=== PATIENT | male | born 1930 | race Caucasian/White ===

== ENCOUNTER → 2018-10-13 | Outpatient (CLI) | payer MEDICARE, OTHER ==
[~2018-10-13] MED LIST: ACIPHEX20 MG PO; AGGRENOX 25 MG-1 CAP PO; ALIGN4 MG PO; ALLEGRA-D 12 H1 EACH PO; ASPIRIN EC81 MG PO; ATORVASTATIN CA20 MG PO; B-121000 MCG PO; BACLOFEN10 MG PO; BACTRIM 400-801 EACH PO; BIOTIN800 MCG PO; BONIVA3 MG/3 ML IV; CALCIUM600 MG PO; CITRUCEL500 MG PO; CO Q-10200 MG PO; CYMBALTA60 MG PO; D3 PO; DOCUSATE CALCI240 MG PO; FINASTERIDE5 MG PO; FLECTOR1 EACH TOP; FLOMAX0.4 MG PO; FLONASE NS; FOLIC ACID1 MG PO; GABAPENTIN300 MG PO; I-CAPS AREDS S1 EACH PO; IRON18 MG PO; LEVSIN-SL0.125 MG SL; LORATADINE10 MG PO; LUTEIN20 MG PO; MIRALAX17 GM PO; NITROGLYCERIN0.4 MG SL; OXYCODONE-ACET1 EAC1 PO; PLAVIX75 MG PO; PRIMIDONE50 MG PO; RAMIPRIL2.5 MG PO; ROPINIROLE HC0.25 MG PO; SYNTHROID50 MCG PO; TOPROL XL25 MG PO; TYLENOL325 MG PO; ZYRTEC10 M3 PO; [UNRECOGNIZED DRUG - OTHER] PO
--- NOTE | 2018-10-13 12:00 | Diagnostic Imaging Report ---
EXAM: CT Abdomen and Pelvis WITHOUT intravenous contrast INDICATION: Renal calculus COMPARISON: None. TECHNIQUE: Abdomen and pelvis were scanned utilizing a multidetector helical scanner from the lung base to the pubic symphysis without administration of IV contrast. Coronal and sagittal reformations were obtained. Routine protocol was performed. IV CONTRAST: None ORAL CONTRAST: None COMPLICATIONS: None RADIATION DOSE: Total DLP: 639.93 mGy*cm Dose modulation, iterative reconstruction, and/or weight based adjustment of the mA/kV was utilized to reduce the radiation dose to as low as reasonably achievable. FINDINGS: LOWER THORAX: Mild bibasilar dependent subsegmental atelectasis. Small area of subpleural clustered cystic changes at the posterior left lower lobe. Atherosclerotic coronary artery calcifications. Focal herniation of the posterior right hemidiaphragm containing fat. HEPATOBILIARY: Hypodense lesion in segment 3, likely a cyst. No other focal liver lesions. No definite biliary ductal dilatation. The gallbladder appears unremarkable. SPLEEN: No splenomegaly. PANCREAS: No focal masses or ductal dilatation. ADRENALS: No adrenal nodules. KIDNEYS/URETERS: Right upper pole renal cyst measures up to 5.6 x 5.3 cm. Right lower pole 3 mm nonobstructing renal calculus. No hydronephrosis. PELVIC ORGANS/BLADDER: Unremarkable. PERITONEUM / RETROPERITONEUM: No free air or fluid. LYMPH NODES: No lymphadenopathy. VESSELS: Diffuse atherosclerotic calcifications of the abdominal aorta and major branches. GI TRACT: Colonic diverticulosis with no CT evidence of diverticulitis. No abnormal bowel wall thickening. No evidence of bowel obstruction. Normal appendix. Incidental note made of duodenal diverticulum. BONES AND SOFT TISSUES: Moderate degenerative changes of the lower lumbar spine. Right gluteal implanted neural stimulator device with leads entering the spinal canal at approximately the L1-2 level. IMPRESSION: Right lower pole 3 mm nonobstructing renal calculus. No hydronephrosis. Right upper pole renal cyst. Coronary artery atherosclerosis. Signed by: John Méndez MD on 10/13/2018 11:56 AM
== END ==
LOC: CT 10:01
PROVIDERS: ATTEND Urology
DX: N20.0 Calculus of kidney (principal)
CPT/HCPCS: 74176

== ENCOUNTER 2018-12-29 15:00 | Inpatient (IN) | payer MEDICARE ==
[~2018-12-29] VITALS: Ht 185.4 cm; Wt 94.8 kg
--- OUTSIDE RECORDS SUMMARY | 2018-12-29 15:12 | XMS REPORT ---
Author Author [facility] [place] Address Unknown Phone Unavailable Care Team Providers Care Pottery Decorator Name Role Phone GINO MARSHALL Unavailable Unavailable PHILLIP SWARTZ Unavailable Unavailable Payers Payer Name Policy Type Policy Number Effective Date Expiration Date Problems This patient has no known problems. Allergies, Adverse Reactions, Alerts Allergy Name Allergy Type Status Severity Reaction(s) Onset Date Inactive Date Treating Clinician Comments ciprofloxacin DA Active [place] 2018-02-12 00:00:00 ciprofloxacin DA Active NH 2012-05-26 00:00:00 Medications This patient has no known medications. Results Test Description Test Time Test Comments Text Results Atomic Results Result Comments CT ABDOMEN/PELVIS WO 2018-12-23 23:55:00 [place] [address] Patient Name: QIANA STEPHENS MR #: [id number] : 1930 Age/Sex: 88/M Req #: [id number] Adm Physician: GINO MARSHALL MD Ordered by: PHILLIP SWARTZ MD Report #: [id number] Location: MED/SURG Room/Bed: [facility] Procedure: [id number] CT/CT ABDOMEN/PELVIS WO Exam Date: Exam Time: REPORT STATUS: Signed EXAM: CT Abdomen and Pelvis WITHOUT contrast INDICATION: TO CHECK CATHETER POSITION Y COMPARISON: CT dated 10/13/2018 TECHNIQUE: Abdomen and pelvis were scanned utilizing a multidetector helical scanner from the lung base to the pubic symphysis without administration of IV contrast. Absence of intravenous contrast decreases sensitivity for detection of focal lesions and vascular pathology. Coronal and sagittal reformations were obtained. Routine protocol was performed. IV CONTRAST: None ORAL CONTRAST: None COMPLICATIONS: None RADIATION DOSE: Total DLP: 786.73 mGy*cm Estimated effective dose: (DLP x 0.015 x size factor) mSv CTDIvol has been reviewed. It is below the limits set by the Radiation Protocol Committee (RPC). FINDINGS: LINES and TUBES: Ramos catheter. Spine stimulator device. LOWER THORAX: Again seen fat containing posterior right diaphragmatic hernia. Mild dependent atelectasis. Partially seen median sternotomy wires and coronary artery calcifications. HEPATOBILIARY: Stable left hepatic lobe hypodensity. Punctate segment VIII calcified granuloma. Otherwise, unenhanced liver is unremarkable. No biliary ductal dilation. GALLBLADDER: No radio-opaque stones or sludge. No wall thickening. SPLEEN: No splenomegaly. Calcified granulomas. PANCREAS: Atrophic. No focal masses or ductal dilatation. ADRENALS: No a drenal nodules KIDNEYS/URETERS: No hydronephrosis. Limited for evaluation of renal parenchyma without intravenous contrast. No significantly changed left mid to inferior pole cyst. Unchanged dilated left renal pelvis. Tiny left superior and inferior pole nonobstructive calculi. Nonspecific bilateral perinephric fat stranding. GI TRACT: No abnormal distention, wall thickening, or evidence of bowel obstruction. Sigmoid diverticulosis without evidence of diverticulitis. 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 Appendix is normal. PELVIC ORGANS/BLADDER: Distended bladder, despite presence of Ramos catheter. Nondependent air within bladder. There is hyperdense material, surrounding the Ramos catheter balloon and tip within bladder with small amount of dependent air. LYMPH NODES: No lymphadenopathy. VESSELS: Moderate to severe aortoiliac atherosclerotic disease. PERITONEUM / RETROPERITONEUM: No free air or fluid. BONES: Mild lumbar spine scoliosis with multilevel advanced degenerative changes. T9 vertebral body hemangioma. SOFT TISSUES: Unremarkable. IMPRESSION: Ramos catheter in place with its balloon and tip within bladder. Hyperdense material, likely blood clot surrounding the catheter balloon and tip within dependent portion of bladder, probably the reason for impaired drainage. The bladder is distended. Additional ancillary findings as above. Signed by: Dr. Rashad Estrella MD on 12/24/2018 12:14 AM Dictated By: RASHAD ESTRELLA MD Transcribed By: EDE on 12/24/1813 COPY TO: PHILLIP SWARTZ MD CHEST 2 VIEWS 2018-12-21 16:44:00 [place] [address] Patient Name: QIANA STEPHENS MR #: [id number] : 1930 Age/Sex: 88/M Req #: [id number] Adm Physician: Ordered by: PHILLIP SWARTZ MD Report #: [id number] Location: OR Room/Bed: Procedure: [id number] DX/CHEST 2 VIEWS Exam Date: 12/21/18 Exam Time: 1623 REPORT STATUS: Signed EXAMINATION: CHEST 2 VIEWS INDICATION: Pre-operative COMPARISON: None FINDINGS: LINES/TUBES:Partially visualized nerve stimulator leads project over the spine. Sternotomy wires intact. LUNGS:The lungs are well inflated. No focal consolidation or pulmonary edema. Scattered subcentimeter left calcified granulomas. PLEURA:No pleural effusion or pneumothorax. MEDIASTINUM:The cardiomediastinal silhouette appears normal in size and shape. Postoperative findings of prior CABG. Atherosclerotic calcifications of the thoracic aorta. BONES/SOFT TISSUES:No acute osseous injury. Partially visualized cervical spine fusion hardware. ABDOMEN:No free air under the diaphragm. IMPRESSION: No focal pneumonia or pulmonary edema. Signed by: Danielito Burgos MD on 12/21/2018 4:46 PM Dictated By: DANIELITO BURGOS MD 45 Transcribed By: EDE on 12/21/181645 COPY TO: PHILLIP SWARTZ MD CT ABDOMEN/PELVIS WO 2018-10-13 11:42:00 [place] [address] Patient Name: QIANA STEPHENS MR #: [id number] : 1930 Age/Sex: 88/M Req #: [id number] Adm Physician: Ordered by: PHILLIP SWARTZ MD Report #: [id number] Location: CT Room/Bed: Procedure: [id number] CT/CT ABDOMEN/PELVIS WO Exam Date: 10/13/18 Exam Time: 1020 REPORT STATUS: Signed EXAM: CT Abdomen and Pelvis WITHOUT intravenous contra st INDICATION: Renal calculus COMPARISON: None. TECHNIQUE: Abdomen and pelvis were scanned utilizing a multidetector helical scanner from the lung base to the pubic symphysis without administration of IV contrast. Coronal and sagittal reformations were obtained. Routine protocol was performed. IV CONTRAST: None ORAL CONTRAST: None COMPLICATIONS: None RADIATION DOSE: Total DLP: 639.93 mGy*cm Dose modulation, iterative reconstruction, and/or weight based adjustment of the mA/kV was utilized to reduce the radiation dose to as low as reasonably achievable. FINDINGS: LOWER THORAX: Mild bibasilar dependent subsegmental atelectasis. Small area of subpleural clustered cystic changes at the posterior left lower lobe. Atherosclerotic coronary artery calcifications. Focal herniation of the posterior right hemidiaphragm containing fat. HEPATOBILIARY: Hypodense lesion in segment 3, likely a cyst. No other focal liver lesions. No definite biliary ductal dilatation. The gallbladder appears unremarkable. SPLEEN: No splenomegaly. PANCREAS: No focal masses or ductal dilatation. ADRENALS: No adrenal nodules. KIDNEYS/URETERS: Right upper pole renal cyst measures up to 5.6 x 5.3 cm. Right lower pole 3 mm nonobstructing renal calculus. No hydronephrosis. PELVIC ORGANS/BLADDER: Unremarkable. PERITONEUM / RETROPERITONEUM: No free air or fluid. LYMPH NODES: No lymphadenopathy. VESSELS: Diffuse atherosclerotic calcifications of the abdominal aorta and major branches. GI TRACT: Colonic diverticulosis with no CT evidence of diverticulitis. No abnormal bowel wall thickening. No evidence of bowel obstruction. Normal appendix. Incidental note made of duodenal diverticulum. BONES AND SOFT TISSUES: Moderate degenerative changes of the lower lumbar spine. Right gluteal implanted neural stimulator device with leads entering the spinal canal at approximately the L1-2 level. IMPRESSION: Right lower pole 3 mm nonobstructing renal calculus. No hydronephrosis. Right upper pole renal cyst. Coronary artery atherosclerosis. Signed by: Danielito Burgos MD on 10/13/2018 11:56 AM Dictated By: DANIELITO BURGOS MD [id number] Transcribed By: EDE on 10/13/18 1156 COPY TO: PHILLIP SWARTZ MD
[2018-12-29] MEDS ORDERED: SODIUM CHLORIDE 0.9% 1000ML 2,000 ML IV STA (15:34)
[2018-12-29] MEDS ORDERED: ACETAMINOPHEN 325 MG TAB PO NR (15:45)
[2018-12-29 15:50] LABS: BASOPHILS % 0.1 % (0.0-1.0); EOSINOPHILS # (AUTO) 0.6 (0.0-0.4); EOSINOPHILS % 4.8 % (0.0-6.0); HEMATOCRIT 31.9 % (38.2-49.6); HEMOGLOBIN 10.2 g/dL (14.0-18.0); LYMPHOCYTES # (AUTO) 0.7 (1.0-3.2); LYMPHOCYTES % 5.4 % (18.0-39.1); MEAN CORPUSCULAR HEMOGLOBIN 30.4 pg (28-32); MEAN CORPUSCULAR VOLUME 95.2 fL (81-99); MONOCYTES # (AUTO) 0.8 (0.2-0.8); MONOCYTES % 6.4 % (4.4-11.3); NEUTROPHILS # (AUTO) 10.8 (2.1-6.9); NEUTROPHILS % 82.8 % (38.7-80.0); PLATELET COUNT 182 x10e3/uL (140-360); RED BLOOD COUNT 3.35 x10e6/uL (4.3-5.7); RED CELL DISTRIBUTION WIDTH 15.9 % (11.7-14.4)
[2018-12-29 15:52] LABS: BILIRUBIN,URINE SMALL (NEGATIVE); CLARITY,URINE SL CLOUDY (CLEAR); COLOR,URINE ORANGE (YELLOW); KETONES,URINE NEGATIVE (NEGATIVE); LEUKOCYTE ESTERASE ,URINE MODERATE (NEGATIVE); NITRITE,URINE POSITIVE (NEGATIVE); URINE UROBILINOGEN 4 mg/dL (0.2 - 1)
[2018-12-29 15:54] LABS: PROTEIN,URINE DIPSTICK 2+ (NEGATIVE)
[2018-12-29] MEDS ORDERED: PIPERACILLIN/TAZO 4.5 GM 100 ML IV SCH (16:00)
[2018-12-29 16:07] LABS: BACTERIA,URINE MODERATE /HPF; RBC,URINE 21-50 /HPF (0-5)
[2018-12-29] MEDS: MORPHINE SULFATE INJ 4 MG/ML INJ 1ML IV PRN ×2 (16:07→20:00)
[2018-12-29 16:08] LABS: ALBUMIN 2.8 g/dL (3.5-5.0); ALBUMIN/GLOBULIN RATIO 0.8 (0.8-2.0); ANION GAP 18.3 mmol/L (8-16); CALCIUM 9.2 mg/dL (8.4-10.2); CREATININE, SERUM 1.19 mg/dL (0.72-1.25); POTASSIUM 4.3 mmol/L (3.5-5.1)
[2018-12-29 16:44] LABS: CREATINE KINASE MB 3.1 ng/mL (0-5.0)
[2018-12-29] MEDS: SODIUM CHLORIDE 0.9% 1000ML 1,000 ML IV SCH (17:18)
--- NOTE | 2018-12-29 18:03 | NUR ---
Received patient from ER. Respiration even and unlabored without SOB. Call light in reach.
--- NOTE | 2018-12-29 19:22 | NUR ---
Report given to assistant casino shift manager. Patient is lying in bed with eyes open. Respiration even and unlabored without SOB. Call light in reach.
--- NOTE | 2018-12-29 19:37 | NUR ---
Received change of shift report from AM nurse. Walking rounds completed.
[2018-12-29 19:50] VITALS: BP 102/59
[2018-12-29 20:00] VITALS: BP 102/59
[2018-12-29] MEDS: ONDANSETRON HCL INJ 2MG/ML 2ML 2 MG/ML VIAL IV PRN (20:00)
[2018-12-29] MEDS: PIPERACILLIN/TAZO 4.5 GM 100 ML IV SCH (23:38)
[2018-12-30] VITALS (10 sets, daily range): BP systolic 108–140; BP diastolic 49–63
--- NOTE | 2018-12-30 | NUR ---
Patient Admitted and assessment completed. Patient in great deal of pain. Called MD and waiting for a return call.
[2018-12-30] MEDS: MORPHINE SULFATE INJ 4 MG/ML INJ 1ML IV PRN ×3 (01:16→05:07)
[2018-12-30] MEDS: ONDANSETRON HCL INJ 2MG/ML 2ML 2 MG/ML VIAL IV PRN ×4 (01:18→23:54)
[2018-12-30 04:52] LABS: CREATINE KINASE MB 4.5 ng/mL (0-5.0)
[2018-12-30] MEDS ORDERED: OXYCODONE/ACETAMINOPHEN 5-325 1 EACH TABLET PO SCH (05:15)
[2018-12-30] MEDS ORDERED: LORATADINE 10 MG TAB PO PRN (05:15)
[2018-12-30] MEDS ORDERED: SULFAMETHOXAZOLE PO SCH (05:15)
[2018-12-30] MEDS ORDERED: HYOSCYAMINE 0.125 MG TAB SL PRN (05:15)
[2018-12-30] MEDS ORDERED: FEXOFENADINE PO SCH (05:15)
[2018-12-30] MEDS ORDERED: BACLOFEN 10 MG TAB PO PRN (05:15)
[2018-12-30] MEDS ORDERED: [UNRECOGNIZED DRUG - OTHER] PO SCH (05:15)
[2018-12-30] MEDS ORDERED: PSEUDOEPHEDRINE PO SCH (05:15)
[2018-12-30] MEDS ORDERED: TRIMETHOPRIM PO SCH (05:15)
[2018-12-30] MEDS ORDERED: [UNRECOGNIZED DRUG - OTHER] PO SCH (05:15)
[2018-12-30] MEDS: PIPERACILLIN/TAZO 4.5 GM 100 ML IV SCH ×2 (06:00→12:14)
[2018-12-30] MEDS: LEVOTHYROXINE SODIUM 50 MCG TAB PO SCH (06:04)
--- NOTE | 2018-12-30 06:24 | NUR ---
S/W Received orders. Orders completed. Also call consult for Dr Camara.
[2018-12-30] MEDS: SODIUM CHLORIDE 0.9% 1000ML 1,000 ML IV SCH ×2 (08:04→09:20)
[2018-12-30] MEDS: OXYCODONE/ACETAMINOPHEN 5-325 1 EACH TABLET PO SCH ×3 (08:52→20:46)
[2018-12-30] MEDS: BIFIDOBACTERIUM INFANTIS PO SCH (09:00)
[2018-12-30] MEDS: [UNRECOGNIZED DRUG - OTHER] PO SCH (09:00)
[2018-12-30] MEDS: COPPER PO SCH (09:00)
[2018-12-30] MEDS: VIT C PO SCH (09:00)
[2018-12-30] MEDS: VIT A PO SCH (09:00)
[2018-12-30] MEDS ORDERED: DOCUSATE SODIUM 100 MG CAP PO SCH (09:00)
[2018-12-30] MEDS: VIT E PO SCH (09:00)
[2018-12-30] MEDS: TOLTERODINE TARTRATE 2 MG TAB PO SCH ×2 (09:00→17:00)
[2018-12-30] MEDS: LUTEIN 20 MG PO SCH (09:00)
[2018-12-30] MEDS ORDERED: CLOPIDOGREL BISULFATE 75 MG TAB PO SCH (09:00)
[2018-12-30] MEDS ORDERED: ASPIRIN 81 MG ENTERIC COATED PO SCH (09:00)
[2018-12-30] MEDS: ZINC PO SCH (09:00)
[2018-12-30 10:55] LABS: CREATINE KINASE MB 5.1 ng/mL (0-5.0)
[2018-12-30] MEDS: GABAPENTIN 300 MG CAP PO SCH ×3 (11:30→20:46)
[2018-12-30] MEDS: SENNOSIDES 8.6 MG TAB PO SCH ×2 (11:30→17:00)
[2018-12-30] MEDS: PRIMIDONE 50 MG TAB PO SCH ×2 (11:30→17:00)
[2018-12-30] MEDS: POLYETHYLENE GLYCOL 3350 17 GM PACK PO SCH (11:30)
[2018-12-30] MEDS: FOLIC ACID 1 MG TAB PO SCH (11:30)
[2018-12-30] MEDS: TAMSULOSIN HCL 0.4 MG CAP PO SCH (11:30)
[2018-12-30] MEDS: CALCIUM CARBONATE 500 MG CHEWABLE TABS PO SCH (11:30)
[2018-12-30] MEDS: PANTOPRAZOLE SOD 40 MG TABEC PO SCH (11:30)
[2018-12-30] MEDS: BACLOFEN 10 MG TAB PO SCH ×3 (11:30→20:46)
[2018-12-30] MEDS: HYDROMORPHONE 1MG/1ML INJ IV PRN ×2 (11:35→23:54)
[2018-12-30] MEDS: B&O 60MG R/S 60 MG SUPP PR PRN ×2 (12:57→20:50)
[2018-12-30] MEDS: PIPERACILLIN/TAZO 2.25 GM 50 ML IV SCH ×2 (13:37→20:46)
[2018-12-30] MEDS: CELECOXIB 200 MG CAP PO SCH (17:50)
--- NOTE | 2018-12-30 19:00 | NUR ---
received report from day nurse. patient is resting comfortably in the bed. bed is in the lowest position and call castellano is within reach. will continue to monitor patient.
[2018-12-30] MEDS: FINASTERIDE 5 MG TAB PO SCH (20:46)
[2018-12-30] MEDS: ATORVASTATIN 20 MG TAB PO SCH (20:47)
[2018-12-31] VITALS (8 sets, daily range): BP systolic 103–152; BP diastolic 54–69
[2018-12-31] MEDS: SODIUM CHLORIDE 0.9% 1000ML 1,000 ML IV SCH ×2 (01:31→12:29)
[2018-12-31] MEDS: OXYCODONE/ACETAMINOPHEN 5-325 1 EACH TABLET PO SCH ×4 (02:27→23:19)
[2018-12-31] MEDS: B&O 60MG R/S 60 MG SUPP PR PRN ×2 (04:18→10:05)
[2018-12-31] MEDS: HYDROMORPHONE 1MG/1ML INJ IV PRN ×2 (04:18→12:29)
[2018-12-31] MEDS: ONDANSETRON HCL INJ 2MG/ML 2ML 2 MG/ML VIAL IV PRN (04:18)
[2018-12-31] MEDS: PIPERACILLIN/TAZO 2.25 GM 50 ML IV SCH ×2 (05:15→16:22)
[2018-12-31] MEDS: LEVOTHYROXINE SODIUM 50 MCG TAB PO SCH (05:15)
[2018-12-31] MEDS: BACLOFEN 10 MG TAB PO SCH ×3 (05:15→23:19)
[2018-12-31 06:30] LABS: BASOPHILS % 0.2 % (0.0-1.0); EOSINOPHILS # (AUTO) 0.3 (0.0-0.4); EOSINOPHILS % 2.2 % (0.0-6.0); HEMATOCRIT 28.7 % (38.2-49.6); LYMPHOCYTES # (AUTO) 1.2 (1.0-3.2); LYMPHOCYTES % 8.9 % (18.0-39.1); MEAN CORPUSCULAR HEMOGLOBIN 30.8 pg (28-32); MEAN CORPUSCULAR HGB CONC 31.4 g/dL (31-35); MEAN CORPUSCULAR VOLUME 98.3 fL (81-99); MONOCYTES % 7.5 % (4.4-11.3); NEUTROPHILS # (AUTO) 10.6 (2.1-6.9); NEUTROPHILS % 79.6 % (38.7-80.0); PLATELET COUNT 186 x10e3/uL (140-360); RED BLOOD COUNT 2.92 x10e6/uL (4.3-5.7); RED CELL DISTRIBUTION WIDTH 16.2 % (11.7-14.4)
[2018-12-31 06:49] LABS: ANION GAP 12.2 mmol/L (8-16); BLOOD UREA NITROGEN 15 mg/dL (7-26); BUN/CREATININE RATIO 15 (6-25); CALCIUM 7.6 mg/dL (8.4-10.2); CARBON DIOXIDE 24 mmol/L (22-29); CHLORIDE 109 mmol/L (98-107); CREATININE, SERUM 0.97 mg/dL (0.72-1.25); EST GLOMERULAR FILTRATION RATE > 60 ML/MIN (60-); GLUCOSE 104 mg/dL (74-118); POTASSIUM 4.2 mmol/L (3.5-5.1); SODIUM 141 mmol/L (136-145)
--- NOTE | 2018-12-31 06:54 | NUR ---
report given to day nurse. patient is resting comfortably in bed. bed is in lowest position and call light is within reach.
[2018-12-31] MEDS: BIFIDOBACTERIUM INFANTIS PO SCH (09:00)
[2018-12-31] MEDS: LUTEIN 20 MG PO SCH (09:00)
[2018-12-31] MEDS: COPPER PO SCH (09:00)
[2018-12-31] MEDS: [UNRECOGNIZED DRUG - OTHER] PO SCH (09:00)
[2018-12-31] MEDS: VIT E PO SCH (09:00)
[2018-12-31] MEDS: VIT C PO SCH (09:00)
[2018-12-31] MEDS: VIT A PO SCH (09:00)
[2018-12-31] MEDS: ZINC PO SCH (09:00)
[2018-12-31] MEDS: TAMSULOSIN HCL 0.4 MG CAP PO SCH (10:23)
[2018-12-31] MEDS: FOLIC ACID 1 MG TAB PO SCH (10:23)
[2018-12-31] MEDS: PANTOPRAZOLE SOD 40 MG TABEC PO SCH (10:23)
[2018-12-31] MEDS: CELECOXIB 200 MG CAP PO SCH ×2 (10:23→18:02)
[2018-12-31] MEDS: CALCIUM CARBONATE 500 MG CHEWABLE TABS PO SCH (10:24)
[2018-12-31] MEDS: SENNOSIDES 8.6 MG TAB PO SCH ×2 (10:24→18:02)
[2018-12-31] MEDS: PRIMIDONE 50 MG TAB PO SCH ×2 (10:24→18:02)
[2018-12-31] MEDS: POLYETHYLENE GLYCOL 3350 17 GM PACK PO SCH (10:24)
[2018-12-31] MEDS: GABAPENTIN 300 MG CAP PO SCH ×3 (10:24→23:19)
[2018-12-31] MEDS: PHENAZOPYRIDINE HCL 100 MG TAB PO SCH ×3 (10:24→23:19)
[2018-12-31] MEDS ORDERED: DIATRIZOATE MEGL/DIATRIZOA SOD 30 ML BTL PO ONE (10:29)
[2018-12-31] MEDS ORDERED: SODIUM CHLORIDE 0.9% 50ML 50 ML ONE (14:49)
[2018-12-31] MEDS ORDERED: IOPAMIDOL 370 MG/ML 200 ML INFUS..BTL INJ ONE (14:49)
--- NOTE | 2018-12-31 15:30 | Diagnostic Imaging Report ---
CT of the chest, without contrast, 12/31/2018. History: Cough. Comparison: Chest x-ray 12/21/2018. Technique: Multidetector CT scanning of the chest was performed from the level of the apices to the upper abdomen without contrast. Coronal and sagittal multiplanar reformations were obtained. RADIATION DOSE: Total DLP: 1379 mGy*cm Dose modulation, iterative reconstruction, and/or weight based adjustment of the mA/kV was utilized to reduce the radiation dose to as low as reasonably achievable. Discussion: Evaluation is limited without IV contrast. Chest: The heart, aorta, and pulmonary vessels are normal in size. CABG clips are present. Calcified left hilar lymph nodes are noted. There is no gross evidence of adenopathy. The pleura and lungs are normal in appearance. Calcified granuloma is noted in the left upper lobe. There is bilateral dependent atelectasis with small bilateral pleural effusions. Limited evaluation of the upper abdomen shows normal adrenal glands. Oral contrast is noted within the esophagus and stomach. Bones and soft tissues: No acute abnormality. Median sternotomy wires are present. Spinal stimulator is noted within the lower thoracic spine. IMPRESSION: 1. Findings of previous granulomatous disease. 2. Bibasilar atelectasis and small bilateral pleural effusions. Signed by: Phil Reynoso on 12/31/2018 3:27 PM
--- NOTE | 2018-12-31 15:44 | Diagnostic Imaging Report ---
CT of the abdomen and pelvis, with contrast, 12/31/2018. History: UTI, abdominal pain. Comparison: Noncontrast CT 12/23/2018. Technique: Multidetector CT scanning of the abdomen and pelvis was performed from the level of the lung bases to the inferior pubic rami after intravenous and oral administration of contrast. Coronal and sagittal multiplanar reformations were obtained. RADIATION DOSE: Total DLP: 1378 mGy*cm Dose modulation, iterative reconstruction, and/or weight based adjustment of the mA/kV was utilized to reduce the radiation dose to as low as reasonably achievable. Discussion: LUNG BASES: There is bibasilar atelectasis with small bilateral pleural effusions. ABDOMEN: 7.7 cm left renal cyst is again noted. There is dilatation of the left renal pelvis and left ureter. There is mild right hydronephrosis and hydroureter. There is no visible renal or ureteral stone. The gallbladder is distended measuring 5.7 cm in transverse diameter, without visible stone or wall thickening. Calcified granulomata are noted within the liver and spleen. The liver, biliary tree, spleen, pancreas, and adrenal glands are otherwise normal. The hepatic vein, portal vein, and splenic vein are patent. The abdominal aorta is within normal limits for size. An aortobiiliac graft is noted, which is patent. There is no bowel dilatation. Multiple diverticuli are present within the sigmoid colon without evidence of adjacent inflammation. There is no evidence of adenopathy or free fluid. PELVIS: A Ramos catheter is present within the bladder, which is decompressed, but with apparent wall thickening anteriorly. Prostate is unremarkable. There is no evidence of free fluid or adenopathy. BONES AND SOFT TISSUES: Advanced degenerative changes are present throughout the lumbar spine without evidence of lytic or sclerotic lesion. Spinal stimulator is noted posteriorly. IMPRESSION: 1. Mild bilateral hydronephrosis and hydroureter without visible obstructing stone. Apparent anterior bladder wall thickening. Hyperdense material in the bladder previously described is no longer seen. Large left renal cyst is again noted. 2. Gallbladder distention without visible gallstone. 3. Colonic diverticulosis without evidence of diverticulitis. Signed by: Phil Reynoso on 12/31/2018 3:41 PM
[2018-12-31] MEDS: TOLTERODINE TARTRATE 2 MG TAB PO SCH ×2 (16:22→18:02)
--- NOTE | 2018-12-31 21:06 | NUR ---
MD returned call, given order for midline.
[2018-12-31] MEDS: ATORVASTATIN 20 MG TAB PO SCH (23:18)
[2018-12-31] MEDS: FINASTERIDE 5 MG TAB PO SCH (23:19)
[2019-01-01] VITALS (8 sets, daily range): BP systolic 94–124; BP diastolic 47–71
--- NOTE | 2019-01-01 04:00 | NUR ---
midline team has just arrived on unit to place line in patient.
[2019-01-01] MEDS: OXYCODONE/ACETAMINOPHEN 5-325 1 EACH TABLET PO SCH ×4 (04:09→20:58)
--- NOTE | 2019-01-01 04:30 | NUR ---
a midline has been placed in the patients left upper arm. line is patent. Will continue to monitor infusion process.
[2019-01-01] MEDS: PIPERACILLIN/TAZO 2.25 GM 50 ML IV SCH ×4 (05:15→21:19)
[2019-01-01] MEDS: LEVOTHYROXINE SODIUM 50 MCG TAB PO SCH (05:18)
[2019-01-01] MEDS: BACLOFEN 10 MG TAB PO SCH ×3 (05:18→21:19)
[2019-01-01 05:39] LABS: BASOPHILS % 0.3 % (0.0-1.0); EOSINOPHILS # (AUTO) 0.6 (0.0-0.4); HEMATOCRIT 28.3 % (38.2-49.6); HEMOGLOBIN 8.9 g/dL (14.0-18.0); LYMPHOCYTES # (AUTO) 1.3 (1.0-3.2); LYMPHOCYTES % 10.4 % (18.0-39.1); MEAN CORPUSCULAR HEMOGLOBIN 30.5 pg (28-32); MEAN CORPUSCULAR HGB CONC 31.4 g/dL (31-35); MEAN CORPUSCULAR VOLUME 96.9 fL (81-99); MONOCYTES # (AUTO) 0.8 (0.2-0.8); MONOCYTES % 5.9 % (4.4-11.3); NEUTROPHILS # (AUTO) 9.8 (2.1-6.9); NEUTROPHILS % 77.4 % (38.7-80.0); PLATELET COUNT 210 x10e3/uL (140-360); RED BLOOD COUNT 2.92 x10e6/uL (4.3-5.7); RED CELL DISTRIBUTION WIDTH 15.9 % (11.7-14.4)
[2019-01-01 06:01] LABS: ANION GAP 10.7 mmol/L (8-16); BLOOD UREA NITROGEN 13 mg/dL (7-26); BUN/CREATININE RATIO 15 (6-25); CALCIUM 7.8 mg/dL (8.4-10.2); CARBON DIOXIDE 25 mmol/L (22-29); CHLORIDE 103 mmol/L (98-107); CREATININE, SERUM 0.85 mg/dL (0.72-1.25); EST GLOMERULAR FILTRATION RATE > 60 ML/MIN (60-); GLUCOSE 116 mg/dL (74-118); POTASSIUM 3.7 mmol/L (3.5-5.1); SODIUM 135 mmol/L (136-145)
--- NOTE | 2019-01-01 07:22 | NUR ---
report given to day nurse. patient is resting comfortably in bed. bed is in lowest position and call light is within reach.
--- NOTE | 2019-01-01 07:26 | NUR ---
PATIENT IN BED RESTING WITH EYES CLOSED, NO RESPIRATORY DISTRESS OBSERVED. O2 IN PLACE VIA N/C, PEDRO WITH BLOODY URINE, TELEMETRY BOX 11, HEEL PROTECTORS IN PLACE. BED IN LOWER POSITION AND LOCKED. CALL LIGHT AT REACH.
[2019-01-01] MEDS: PANTOPRAZOLE SOD 40 MG TABEC PO SCH (07:50)
[2019-01-01] MEDS: VIT E PO SCH (09:00)
[2019-01-01] MEDS: VIT C PO SCH (09:00)
[2019-01-01] MEDS: COPPER PO SCH (09:00)
[2019-01-01] MEDS: POLYETHYLENE GLYCOL 3350 17 GM PACK PO SCH (09:00)
[2019-01-01] MEDS: LUTEIN 20 MG PO SCH (09:00)
[2019-01-01] MEDS: BIFIDOBACTERIUM INFANTIS PO SCH (09:00)
[2019-01-01] MEDS: [UNRECOGNIZED DRUG - OTHER] PO SCH (09:00)
[2019-01-01] MEDS: ZINC PO SCH (09:00)
[2019-01-01] MEDS: VIT A PO SCH (09:00)
[2019-01-01] MEDS: TOLTERODINE TARTRATE 2 MG TAB PO SCH ×2 (09:01→17:00)
[2019-01-01] MEDS: CELECOXIB 200 MG CAP PO SCH ×2 (09:01→17:00)
[2019-01-01] MEDS: TAMSULOSIN HCL 0.4 MG CAP PO SCH (09:01)
[2019-01-01] MEDS: GABAPENTIN 300 MG CAP PO SCH ×3 (09:02→20:58)
[2019-01-01] MEDS: FOLIC ACID 1 MG TAB PO SCH (09:02)
[2019-01-01] MEDS: PRIMIDONE 50 MG TAB PO SCH ×2 (09:02→17:00)
[2019-01-01] MEDS: CALCIUM CARBONATE 500 MG CHEWABLE TABS PO SCH (09:02)
[2019-01-01] MEDS: SENNOSIDES 8.6 MG TAB PO SCH ×2 (09:02→17:00)
[2019-01-01] MEDS: PHENAZOPYRIDINE HCL 100 MG TAB PO SCH ×3 (09:02→20:58)
--- NOTE | 2019-01-01 16:37 | NUR ---
PATIENT AMBULATED WITH PHYSICAL THERAPY IN HALLWAY. BACK TO CHAIR. ALL PERSONAL ITEMS CLOSE TO PATIENT. CALL LIGHT AT REACH. FAMILY MEMBER AT BED SIDE.
--- NOTE | 2019-01-01 17:03 | NUR ---
Nutrition Screen Note RD Recommendation for Physician: -Continue current diet per MD. Plan of Care: RD following, monitoring for tolerance and adequacy Nutrition reason for involvement: MST- 2 Primary Diagnose(s): UTI PMH: COPD, hypertension, dyslipidemia, enlarged prostate, hypothyroidism, reflux Ht: 71 in Wt: 195 b BMI:27.2 kg/m2 IBW:[address] Assessment: (01/01): 88 YOM admitted for UTI with PMH listed above. Pt was seen sleeping, at bedside. was able to answer all questions regarding pt. Prior to admission his appetite and weight have been stable. He was recently d/c from this hospital last week. She denied N/V/C/D/chewing or swallowing issues as well as any food allergies. She had no other questions or concerns. Chart reviewed. Labs and meds reviewed. Observed some temporal and clavicle muscle wasting which could also be related to age. Will continue to monitor. Current Diet: Cardiac Malnutrition Evaluation (01/01) The patient does not meet criteria for a specified degree of malnutrition at this time. Will re-evaluate at follow-up as appropriate. Fat loss: unable to evaluate Muscle loss: Moderate-temporal and clavicle Diet Education Needs Assessment: Diet education indicated, pt not appropriate at this time. Nutrition Care Level: low Signed: Esme Staples, RD, LD
[2019-01-01] MEDS: SODIUM CHLORIDE 0.9% 1000ML 1,000 ML IV SCH (18:30)
--- NOTE | 2019-01-01 19:15 | NUR ---
patient received awake, lying quietly in bed. vss. no c/o pain noted. ivf continue to infuse without difficulty. pm assessment complete. sr up x 3 and call castellano placed within reach. patient instructed to call for assistance when needed.
[2019-01-01] MEDS: ATORVASTATIN 20 MG TAB PO SCH (20:58)
[2019-01-01] MEDS: FINASTERIDE 5 MG TAB PO SCH (20:58)
[2019-01-02] VITALS (8 sets, daily range): BP systolic 107–163; BP diastolic 51–69
[2019-01-02] MEDS: OXYCODONE/ACETAMINOPHEN 5-325 1 EACH TABLET PO SCH ×4 (03:00→20:27)
[2019-01-02] MEDS: SODIUM CHLORIDE 0.9% 1000ML 1,000 ML IV SCH (05:30)
[2019-01-02] MEDS: PIPERACILLIN/TAZO 2.25 GM 50 ML IV SCH ×3 (05:30→21:41)
[2019-01-02] MEDS: LEVOTHYROXINE SODIUM 50 MCG TAB PO SCH (05:33)
[2019-01-02] MEDS: BACLOFEN 10 MG TAB PO SCH ×3 (05:33→21:41)
--- NOTE | 2019-01-02 07:22 | NUR ---
PATIENT IN BED RESTING WITH EYES CLOSED, NO S/S OF DISTRESS NOTED. IV FLUID INFUSING ORDERED. PEDRO CATHETER DRAINIG ORANGE URINE. BED IN LOWER POSITION, CALL LIGHT AT REACH.
[2019-01-02] MEDS: PANTOPRAZOLE SOD 40 MG TABEC PO SCH (07:52)
[2019-01-02] MEDS: CELECOXIB 200 MG CAP PO SCH ×2 (08:00→17:21)
[2019-01-02] MEDS: VIT C PO SCH (09:00)
[2019-01-02] MEDS: BIFIDOBACTERIUM INFANTIS PO SCH (09:00)
[2019-01-02] MEDS: [UNRECOGNIZED DRUG - OTHER] PO SCH (09:00)
[2019-01-02] MEDS: COPPER PO SCH (09:00)
[2019-01-02] MEDS: SENNOSIDES 8.6 MG TAB PO SCH ×2 (09:00→17:21)
[2019-01-02] MEDS: POLYETHYLENE GLYCOL 3350 17 GM PACK PO SCH (09:00)
[2019-01-02] MEDS: VIT E PO SCH (09:00)
[2019-01-02] MEDS: ZINC PO SCH (09:00)
[2019-01-02] MEDS: VIT A PO SCH (09:00)
[2019-01-02] MEDS: LUTEIN 20 MG PO SCH (09:00)
[2019-01-02] MEDS: FOLIC ACID 1 MG TAB PO SCH (09:57)
[2019-01-02] MEDS: TOLTERODINE TARTRATE 2 MG TAB PO SCH ×2 (09:57→17:21)
[2019-01-02] MEDS: CALCIUM CARBONATE 500 MG CHEWABLE TABS PO SCH (09:57)
[2019-01-02] MEDS: TAMSULOSIN HCL 0.4 MG CAP PO SCH (09:57)
[2019-01-02] MEDS: PRIMIDONE 50 MG TAB PO SCH ×2 (09:57→17:21)
[2019-01-02] MEDS: GABAPENTIN 300 MG CAP PO SCH ×3 (09:57→20:27)
--- NOTE | 2019-01-02 11:23 | NUR ---
PEDRO CATHETER DISCONTINUED ORDERED. PATIENT IS DUE TO VOID. PO FLUID ENCOURAGED, URINAL PROVIDED FOR SERIAL URINE. BED IN LOWER POSITION, CALL LIGHT AT REACH.
--- NOTE | 2019-01-02 15:10 | NUR ---
PATIENT VOIDED 80CC OF DARK ORANGE URINE TO URINAL. IN BED RESTING WITH HEAD OF BED ELEVATED, NO DISTRESS NOTED. CALL LIGHT AT REACH.
--- NOTE | 2019-01-02 19:15 | NUR ---
patient received awake, alert, lying quietly in bed. no c/o pain noted. patient continues to void without difficulty. serial urines continue per orders. pm assessment complete. side rails up x 3. call castellano placed within reach. patient instructed to call for assistance when needed.
[2019-01-02] MEDS: ATORVASTATIN 20 MG TAB PO SCH (20:27)
[2019-01-02] MEDS: FINASTERIDE 5 MG TAB PO SCH (20:27)
[2019-01-03] VITALS (8 sets, daily range): BP systolic 122–149; BP diastolic 60–67
[2019-01-03] MEDS: OXYCODONE/ACETAMINOPHEN 5-325 1 EACH TABLET PO SCH ×4 (02:54→20:59)
[2019-01-03] MEDS: BACLOFEN 10 MG TAB PO SCH ×3 (05:50→22:18)
[2019-01-03] MEDS: LEVOTHYROXINE SODIUM 50 MCG TAB PO SCH (05:50)
[2019-01-03] MEDS: PIPERACILLIN/TAZO 2.25 GM 50 ML IV SCH ×3 (05:50→22:17)
--- NOTE | 2019-01-03 07:22 | NUR ---
PATIENT ASSISTED WITH DIAPER CHANGE, HAD A LARGE BM. REPOSITIONED IN BED. SERIAL URINE COLLECTION IN PROGRESS. BED IN LOWER POSITION, CALL LIGHT AT REACH.
[2019-01-03 07:41] LABS: BASOPHILS # (AUTO) 0.1 (0.0-0.1); BASOPHILS % 0.5 % (0.0-1.0); EOSINOPHILS % 10.3 % (0.0-6.0); HEMATOCRIT 27.5 % (38.2-49.6); HEMOGLOBIN 8.5 g/dL (14.0-18.0); LYMPHOCYTES # (AUTO) 1.3 (1.0-3.2); LYMPHOCYTES % 13.1 % (18.0-39.1); MEAN CORPUSCULAR HEMOGLOBIN 30.1 pg (28-32); MEAN CORPUSCULAR HGB CONC 30.9 g/dL (31-35); MEAN CORPUSCULAR VOLUME 97.5 fL (81-99); MONOCYTES # (AUTO) 0.6 (0.2-0.8); MONOCYTES % 5.5 % (4.4-11.3); NEUTROPHILS % 68.9 % (38.7-80.0); PLATELET COUNT 204 x10e3/uL (140-360); RED BLOOD COUNT 2.82 x10e6/uL (4.3-5.7); RED CELL DISTRIBUTION WIDTH 15.9 % (11.7-14.4)
[2019-01-03 07:59] LABS: BLOOD UREA NITROGEN 13 mg/dL (7-26); BUN/CREATININE RATIO 18 (6-25); CALCIUM 8.1 mg/dL (8.4-10.2); CARBON DIOXIDE 24 mmol/L (22-29); CHLORIDE 109 mmol/L (98-107); CREATININE, SERUM 0.71 mg/dL (0.72-1.25); EST GLOMERULAR FILTRATION RATE > 60 ML/MIN (60-); GLUCOSE 110 mg/dL (74-118); SODIUM 140 mmol/L (136-145)
[2019-01-03] MEDS: PANTOPRAZOLE SOD 40 MG TABEC PO SCH (08:05)
[2019-01-03] MEDS: CELECOXIB 200 MG CAP PO SCH ×2 (08:05→17:07)
[2019-01-03] MEDS: BIFIDOBACTERIUM INFANTIS PO SCH (09:00)
[2019-01-03] MEDS: COPPER PO SCH (09:00)
[2019-01-03] MEDS: SENNOSIDES 8.6 MG TAB PO SCH ×2 (09:00→17:00)
[2019-01-03] MEDS: VIT E PO SCH (09:00)
[2019-01-03] MEDS: LUTEIN 20 MG PO SCH (09:00)
[2019-01-03] MEDS: ZINC PO SCH (09:00)
[2019-01-03] MEDS: VIT A PO SCH (09:00)
[2019-01-03] MEDS: VIT C PO SCH (09:00)
[2019-01-03] MEDS: POLYETHYLENE GLYCOL 3350 17 GM PACK PO SCH (09:00)
[2019-01-03] MEDS: [UNRECOGNIZED DRUG - OTHER] PO SCH (09:00)
[2019-01-03] MEDS: TAMSULOSIN HCL 0.4 MG CAP PO SCH (09:06)
[2019-01-03] MEDS: FOLIC ACID 1 MG TAB PO SCH (09:06)
[2019-01-03] MEDS: GABAPENTIN 300 MG CAP PO SCH ×3 (09:06→20:59)
[2019-01-03] MEDS: PRIMIDONE 50 MG TAB PO SCH ×2 (09:06→17:07)
[2019-01-03] MEDS: TOLTERODINE TARTRATE 2 MG TAB PO SCH ×2 (09:06→17:07)
[2019-01-03] MEDS: CALCIUM CARBONATE 500 MG CHEWABLE TABS PO SCH (09:07)
--- NOTE | 2019-01-03 11:58 | NUR ---
PATIENT IN BED WITH HEAD OF BED ELEVATED, NO DISTRESS NOTED. SERIAL URINE COLLECTION IN PROGRESS. CALL LIGHT AT REACH.
--- NOTE | 2019-01-03 15:09 | NUR ---
PATIENT ASSISTED WITH DIAPER CHANGE. MD IN TO SEE PATIENT, SERIAL URINE COLLECTION STOPPED.
[2019-01-03] MEDS: NYSTATIN 15 GM POWDER UD BTL TOP SCH (17:07)
[2019-01-03] MEDS: FINASTERIDE 5 MG TAB PO SCH (20:59)
[2019-01-03] MEDS: ATORVASTATIN 20 MG TAB PO SCH (20:59)
[2019-01-04] VITALS (8 sets, daily range): BP systolic 115–161; BP diastolic 56–87
[2019-01-04] MEDS: OXYCODONE/ACETAMINOPHEN 5-325 1 EACH TABLET PO SCH ×4 (02:47→20:52)
[2019-01-04] MEDS: PIPERACILLIN/TAZO 2.25 GM 50 ML IV SCH ×3 (06:26→22:20)
[2019-01-04] MEDS: BACLOFEN 10 MG TAB PO SCH ×3 (06:26→22:20)
[2019-01-04] MEDS: LEVOTHYROXINE SODIUM 50 MCG TAB PO SCH (06:46)
--- NOTE | 2019-01-04 06:50 | NUR ---
received bedside report from senior [employer] consultant RN, pt resting in bed, no distress noted, call light within reach, will continue to assess.
[2019-01-04] MEDS: PANTOPRAZOLE SOD 40 MG TABEC PO SCH (08:51)
[2019-01-04] MEDS: TAMSULOSIN HCL 0.4 MG CAP PO SCH (08:52)
[2019-01-04] MEDS: CELECOXIB 200 MG CAP PO SCH ×2 (08:52→18:15)
[2019-01-04] MEDS: TOLTERODINE TARTRATE 2 MG TAB PO SCH ×2 (08:52→18:15)
[2019-01-04] MEDS: LUTEIN 20 MG PO SCH (08:53)
[2019-01-04] MEDS: [UNRECOGNIZED DRUG - OTHER] PO SCH (08:53)
[2019-01-04] MEDS: FOLIC ACID 1 MG TAB PO SCH (08:53)
[2019-01-04] MEDS: BIFIDOBACTERIUM INFANTIS PO SCH (08:53)
[2019-01-04] MEDS: VIT E PO SCH (08:54)
[2019-01-04] MEDS: VIT A PO SCH (08:54)
[2019-01-04] MEDS: GABAPENTIN 300 MG CAP PO SCH ×3 (08:54→20:52)
[2019-01-04] MEDS: VIT C PO SCH (08:54)
[2019-01-04] MEDS: COPPER PO SCH (08:54)
[2019-01-04] MEDS: ZINC PO SCH (08:54)
[2019-01-04] MEDS: PRIMIDONE 50 MG TAB PO SCH ×2 (08:54→18:15)
[2019-01-04] MEDS: POLYETHYLENE GLYCOL 3350 17 GM PACK PO SCH (09:00)
[2019-01-04] MEDS: NYSTATIN 15 GM POWDER UD BTL TOP SCH ×2 (09:00→17:05)
[2019-01-04] MEDS: SENNOSIDES 8.6 MG TAB PO SCH ×2 (09:02→18:16)
[2019-01-04] MEDS: CALCIUM CARBONATE 500 MG CHEWABLE TABS PO SCH (09:04)
--- NOTE | 2019-01-04 09:40 | NUR ---
bedside bladder scan performed, which showed 211 mL s/p pt voiding in diaper. per Dr. Acuña, ambulate pt and continue to assess.
[2019-01-04] MEDS: FLUTICASONE PROPIONATE 220MCG INH INH PRN (19:30)
[2019-01-04] MEDS: ATORVASTATIN 20 MG TAB PO SCH (20:52)
[2019-01-04] MEDS: FINASTERIDE 5 MG TAB PO SCH (20:53)
[2019-01-05] VITALS: BP 154/72
[2019-01-05] MEDS: OXYCODONE/ACETAMINOPHEN 5-325 1 EACH TABLET PO SCH ×2 (03:11→09:00)
[2019-01-05 04:00] VITALS: BP 176/78
[2019-01-05] MEDS: BACLOFEN 10 MG TAB PO SCH (06:03)
[2019-01-05] MEDS: PIPERACILLIN/TAZO 2.25 GM 50 ML IV SCH (06:03)
[2019-01-05] MEDS: LEVOTHYROXINE SODIUM 50 MCG TAB PO SCH (06:14)
[2019-01-05] MEDS: FLUTICASONE PROPIONATE 220MCG INH INH PRN (07:09)
--- NOTE | 2019-01-05 07:23 | NUR ---
PATIENT IN BED WITH HEAD OF BED ELEVATED, NO DISTRESS NOTED. O2 IN PLACE VIA N/C. TELEMETRY BOX IN PLACE. BED IN LOWER POSITION, CALL LIGHT AT REACH.
[2019-01-05 07:25] VITALS: BP 152/67
[2019-01-05 07:51] VITALS: BP 152/67
[2019-01-05] MEDS: PANTOPRAZOLE SOD 40 MG TABEC PO SCH (08:05)
[2019-01-05] MEDS ORDERED: PHENAZOPYRIDINE HCL 100 MG TAB PO PRN (08:45)
[2019-01-05] MEDS: CELECOXIB 200 MG CAP PO SCH (08:54)
[2019-01-05] MEDS: LUTEIN 20 MG PO SCH (09:00)
[2019-01-05] MEDS: BIFIDOBACTERIUM INFANTIS PO SCH (09:00)
[2019-01-05] MEDS: [UNRECOGNIZED DRUG - OTHER] PO SCH (09:00)
[2019-01-05] MEDS: VIT E PO SCH (09:00)
[2019-01-05] MEDS: VIT A PO SCH (09:00)
[2019-01-05] MEDS: VIT C PO SCH (09:00)
[2019-01-05] MEDS: COPPER PO SCH (09:00)
[2019-01-05] MEDS: ZINC PO SCH (09:00)
[2019-01-05] MEDS: TOLTERODINE TARTRATE 2 MG TAB PO SCH (09:33)
[2019-01-05] MEDS: FOLIC ACID 1 MG TAB PO SCH (09:33)
[2019-01-05] MEDS: TAMSULOSIN HCL 0.4 MG CAP PO SCH (09:33)
[2019-01-05] MEDS: NYSTATIN 15 GM POWDER UD BTL TOP SCH (09:34)
[2019-01-05] MEDS: POLYETHYLENE GLYCOL 3350 17 GM PACK PO SCH (09:34)
[2019-01-05] MEDS: CALCIUM CARBONATE 500 MG CHEWABLE TABS PO SCH (09:34)
[2019-01-05] MEDS: SENNOSIDES 8.6 MG TAB PO SCH (09:34)
[2019-01-05] MEDS: GABAPENTIN 300 MG CAP PO SCH (09:34)
[2019-01-05] MEDS: PRIMIDONE 50 MG TAB PO SCH (09:34)
--- NOTE | 2019-01-05 11:26 | NUR ---
PATIENT OUT OF BED TO CHAIR WATCHING TV, NO COMPLAIN VOICED. CALL LIGHT AT REACH.
[2019-01-05] MEDS ORDERED: ONDANSETRON HCL 4 MG ORAL DISINTEGRATING TAB PO PRN (11:30)
[2019-01-05 12:01] VITALS: BP 126/58
--- NOTE | 2019-01-05 13:20 | NUR ---
IMM LETTER EXPLAINED TO PT. PT VERBALIZED UNDERSTANDING. IMM LETTER SIGNED. COPY TO PT AND COPY TO CHART.
[2019-01-05] MEDS ORDERED: CELEBREX100 MG PO (13:25)
[2019-01-05] MEDS ORDERED: DETROL LA4 MG PO (13:26)
--- NOTE | 2019-01-05 14:00 | NUR ---
PATIENT DISCHARGED HOME. DISCHARGE INSTRUCTIONS, PRESCRIPTIONS, AND FOLLOW UP GIVEN TO PATIENT AND . THEY VERBALIZED UNDERSTANDING. MID LINE TO RIGHT UPPER ARM REMOVED WITH TIP INTACT. ALL PERSONAL ITEMS TAKEN WITH PATIENT. LEFT UNIT PER WHEEL CHAIR TO FRONT LOBBY IN STABLE CONDITION.
--- NOTE | 2019-01-06 07:45 | Discharge Summary ---
PRIMARY CARE PHYSICIAN: Dr. Kwame Bateman. SEED CLEANING MACHINE OPERATOR: Dr. Jamal Camara. HOSPITAL COURSE: The patient is an 88-year-old male, discharged home after a TURP procedure. He went home with a Ramos catheter, came right back in because of severe pain and spasm. The pain was uncontrollable at home. The patient in light of taking pain medication, he was unable to tolerate the pain, which brought the patient immediately back to the hospital within 48 hours. The patient here received pain medication, first IV Dilaudid and then subsequently titrated down to orally. The patient is doing much better now. He is stable. Celebrex 200 mg twice a day and Detrol 2 mg twice a day seemed to work for the patient on top of his other medication as well. The patient is stable now. He is comfortable. He will go home today. Ramos has discontinued. The pain and spasm have significantly subsided. The patient will go home to resume his home medication. Again, advised the patient to hold off on the Plavix and aspirin for approximately 7 days. He will resume them afterwards. The patient to continue with his other home medication. He will take Celebrex 200 mg twice a day as needed for pain and Detrol 2 mg twice a day. The patient is stable and discharged home today. MD BHAVYA Chung/RICHA /[id number]
== END 2019-01-05 14:34 | disposition home or self-care (01) | DRG 699 ==
LOC: MERGE 15:09 → ER 15:09 → ERHOLD 16:35 → MED/SURG3 18:05
PROVIDERS: ADMIT Internal Medicine; ATTEND Internal Medicine
PROC: 02HV33Z Insertion of Infusion Device into Superior Vena Cava, Percutaneous Approach (ICD-10-PCS; principal; 2019-01-01)
DX: N32.89 Other specified disorders of bladder (principal); N39.0 Urinary tract infection, site not specified; G89.18 Other acute postprocedural pain; N40.1 Benign prostatic hyperplasia with lower urinary tract symptoms
CPT/HCPCS: 36415; 71250; 74177; 80048; 80053; 81001; 82550; 82553; 83605; 84484; 85025; 87040; 87086; 93005; 94664; 97139; 99284; J1170; J2270; J2405; J2543; J7030; Q9967